=== PATIENT | male | born 1950 | race Caucasian/White ===

== ENCOUNTER 2023-12-28 15:58 | Emergency (ER) | payer MEDICARE ==
[~2023-12-28] VITALS: Ht 172.7 cm; Wt 75.8 kg
[2023-12-28] MEDS ORDERED: FOLTTAB9 PO (16:05)
[2023-12-28] MEDS ORDERED: ROSU20TA61 PO (16:05)
[2023-12-28] MEDS ORDERED: FOLI1TAB11 PO (16:05)
[2023-12-28] MEDS ORDERED: BENA20TA PO (16:05)
[2023-12-28] MEDS ORDERED: METF-877 PO (16:05)
[2023-12-28 19:42] VITALS: BP 176/93; TEMP 97.6; O2SAT 94
== END 2023-12-28 19:44 | disposition home or self-care (01) ==
LOC: M ED 15:58
DX: R22.41 Localized swelling, mass and lump, right lower limb (principal); I73.9 Peripheral vascular disease, unspecified; I10 Essential (primary) hypertension; E11.9 Type 2 diabetes mellitus without complications; K21.9 Gastro-esophageal reflux disease without esophagitis; I25.2 Old myocardial infarction; F17.200 Nicotine dependence, unspecified, uncomplicated; Z86.79 Personal history of other diseases of the circulatory system; Z88.8 Allergy status to other drugs, medicaments and biological substances; Z79.899 Other long term (current) drug therapy; Z79.4 Long term (current) use of insulin